=== PATIENT | female | born 1950 | race Caucasian/White ===

== ENCOUNTER 2017-09-15 13:26 | Emergency (ER) | payer MEDICARE, BC ==
[2017-09-15] MEDS ORDERED: Sodium Chloride 0.9% 10 ML Syringe FLUSH PRN (14:58)
[2017-09-15] MEDS ORDERED: Iopamidol 612 MG/ML 150 ML Bottle IV STA (15:22)
--- NOTE | 2017-09-15 18:05 | EDM.PDOC ---
ED HPI GENERAL MEDICAL PROBLEM - General Chief Complaint: Abdominal Pain Stated Complaint: ABD PAIN Time Seen by Provider: 09/15/17 14:42 Source of Information: Reports: Patient History Limitations: Reports: No Limitations - History of Present Illness INITIAL COMMENTS - FREE TEXT/NARRATIVE: This lady comes in complaining of abdominal pain since last night. She describes it as a vague pain mostly periumbilical. She's vomited a couple of times with mostly having some dry heaves. She hasn't had anything to eat or drink today she had a previous colectomy due to diverticulitis so she always has a little bit of diarrhea which is unchanged. She denies any fever she has a history of multiple sclerosis. She tried some Tums last night that didn't help. She tried some Pepto-Bismol this morning and that did not help either. abdominal Pain Score (Numeric/FACES): 5 - Related Data Allergies Allergy/AdvReac Type Severity Reaction Status Date / Time No Known Allergies Allergy Verified 09/15/17 14:31 Home Meds: Home Meds clonazePAM [Clonazepam] 0.5 mg PO DAILY 11/25/13 [History] Escitalopram [Lexapro] 20 mg PO DAILY 03/10/14 [History] Levothyroxine Sodium [Synthroid] 25 mcg PO DAILY 03/10/14 [History] Mirtazapine [Remeron] 7.5 mg PO BEDTIME 03/10/14 [History] Omeprazole 20 mg PO DAILY 03/10/14 [History] clonazePAM [Klonopin] 1 mg PO BEDTIME 03/10/14 [History] Past Medical History HEENT History: Reports: Impaired Vision Neurological History: Reports: MS Psychiatric History: Reports: Anxiety, Depression - Past Surgical History Female Surgical History: Reports: Tubal Ligation Social & Family History - Tobacco Use Smoking Status *Q: Former Smoker Years of Tobacco use: 35 Used Tobacco, but Quit: No Second Hand Smoke Exposure: No - Alcohol Use Days Per Week of Alcohol Use: 7 Number of Drinks Per Day: 2 Total Drinks Per Week: 14 - Recreational Drug Use Recreational Drug Use: No ED ROS GENERAL - Review of Systems Review Of Systems: See Below Constitutional: Reports: No Symptoms HEENT: Reports: No Symptoms Respiratory: Reports: No Symptoms Cardiovascular: Reports: No Symptoms Endocrine: Reports: No Symptoms GI/Abdominal: Reports: Abdominal Pain : Reports: No Symptoms Musculoskeletal: Reports: No Symptoms Skin: Reports: No Symptoms Neurological: Reports: No Symptoms ED EXAM, GI/ABD - Physical Exam Exam: See Below Exam Limited By: No Limitations General Appearance: Alert, Mild Distress, Obese Eyes: Bilateral: Normal Appearance Throat/Mouth: Normal Inspection Neck: Supple Respiratory/Chest: Lungs Clear Cardiovascular: Regular Rate, Rhythm GI/Abdominal Exam: Other (Abdomen feels a little bit firm and distended. Tenderness is mild but diffuse mostly in the periumbilical area. No definite masses were palpable) Extremities: Normal Inspection Neurological: Alert, Oriented, Normal Cognition Course - Vital Signs Last Recorded V/S: Last Vital Signs Temp 36.9 C 09/15/17 14:28 Pulse 67 09/15/17 17:15 Resp 20 09/15/17 17:15 BP 110/76 09/15/17 17:15 Pulse Ox 94 L 09/15/17 17:15 - Orders/Labs/Meds Orders: Active Orders 24 hr Category Date Time Status Abdomen Pelvis w Cont [CT] Stat Exams 09/15/17 14:58 Taken Sodium Chloride 0.9% [Saline Flush] Med 09/15/17 14:58 Active 10 ml FLUSH ASDIRECTED PRN Saline Lock Insert [OM.PC] Urgent Oth 09/15/17 14:58 Ordered Medication Orders Sodium Chloride (Saline Flush) 10 ml FLUSH ASDIRECTED PRN PRN Reason: Keep Vein Open Last Admin: 09/15/17 15:34 Dose: 10 ml Labs: Laboratory Tests 09/15/17 09/15/17 09/15/17 Range/Units 14:58 14:58 16:46 WBC 12.8 H (4.5-11.0) K/uL RBC 5.28 (3.30-5.50) M/uL Hgb 15.2 H D (12.0-15.0) g/dL Hct 47.2 (36.0-48.0) % MCV 89 (80-98) fL MCH 29 (27-31) pg MCHC 32 (32-36) % Plt Count 312 (150-400) K/uL Neut % (Auto) 86 H (36-66) % Lymph % (Auto) 11 L (24-44) % [place] % (Auto) 3 (2-6) % Eos % (Auto) 0 L (2-4) % Baso % (Auto) 0 (0-1) % Sodium 140 (140-148) mmol/L Potassium 4.6 (3.6-5.2) mmol/L Chloride 104 (100-108) mmol/L Carbon Dioxide 26 (21-32) mmol/L Anion Gap 10.3 (5.0-14.0) mmol/L BUN 8 (7-18) mg/dL Creatinine 1.0 D (0.6-1.0) mg/dL Est Cr Clr Drug Dosing 55.07 mL/min Estimated GFR (MDRD) 55 L (>60) Glucose 125 H (74-106) mg/dL Calcium 9.0 (8.5-10.1) mg/dL Total Bilirubin 0.4 D (0.2-1.0) mg/dL AST 25 (15-37) U/L ALT 17 (12-78) U/L Alkaline Phosphatase 145 H (46-116) U/L Total Protein 8.8 H (6.4-8.2) g/dL Albumin 3.7 (3.4-5.0) g/dL Globulin 5.1 H (2.3-3.5) g/dL Albumin/Globulin Ratio 0.7 L (1.2-2.2) Urine Color Yellow Urine Appearance Slightly cloudy Urine pH 5.0 (4.5-8.0) Ur Specific [place] 1.010 (1.008-1.030) Urine Protein Negative (NEGATIVE) mg/dL Urine Glucose (UA) Normal (NEGATIVE) mg/dL Urine Ketones Negative (NEGATIVE) mg/dL Urine Occult Blood Moderate (NEGATIVE) Urine Nitrite Positive H (NEGATIVE) Urine Bilirubin Negative (NEGATIVE) Urine Urobilinogen Normal (NORMAL) mg/dL Ur Leukocyte Esterase Moderate (NEGATIVE) Urine RBC 5-10 H (0-5) Urine WBC 10-20 H (0-5) Ur Epithelial Cells Few Amorphous Sediment Not seen Urine Bacteria Many Urine Mucus Few Meds: Medications Generic Name Dose Route Start Last Admin Trade Name Freq PRN Reason Stop Dose Admin Sodium Chloride 10 ml 09/15/17 14:58 09/15/17 15:34 Saline Flush FLUSH 10 ml ASDIRECTED PRN Administration Keep Vein Open Discontinued Medications Generic Name Dose Route Start Last Admin Trade Name Freq PRN Reason Stop Dose Admin Sodium Chloride 79 mls @ 3.9 mls/sec 09/15/17 15:22 09/15/17 15:56 Normal Saline IV 09/15/17 15:23 3.9 mls/sec ASDIRECTED STA Administration Iopamidol 129 ml 09/15/17 15:22 09/15/17 15:55 Isovue-300 (61%) IV 09/15/17 15:23 150 ml . DIRECTED STA Administration - Radiology Interpretation Free Text/Narrative:: Abdominal CT showed cholelithiasis with gallbladder wall thickening suggesting acute or chronic cholecystitis. There was no biliary dilatation. Looks like early cholecystitis. There was some thickening of the urinary bladder which could be acute or chronic no other acute findings there is no sign of bowel obstruction. - Re-Assessments/Exams Free Text/Narrative Re-Assessment/Exam: 09/15/17 18:[address] patient's symptoms have resolved almost completely. I spoke with Dr. Ellis Butler our surgeon and he feels she probably needs to have her gallbladder removed. He offered to do it tomorrow or next Saturday in 3 days which is what the patient would prefer. Therefore she'll be put on Augmentin 875 twice daily for up to 10 days and Percocet 5/325 one or 2 every 4 hours. She is to be nothing by mouth after midnight on Saturday and show up on Saturday morning at 7:30 for the surgery. The warehouse administrative assistant will be contacted tonight to make whatever other arrangements are needed. I recommend a clear liquid diet and then a fat-free diet until the time of her surgery. She's encouraged to return to the ER at any time if getting worse 09/15/17 18:15 Departure - Departure Time of Disposition: 18:02 Disposition: Home, Self-Care 01 Condition: Fair Clinical Impression: Cholecystitis - Discharge Information Referrals: El Luu MD [Primary Care Provider] - Forms: ED Department Discharge Additional Instructions: It appears that you have a mild case of cholecystitis. That's where the gallbladder gets plugged up by a gallstone and starts to get infected. Dr. Butler will plan to take out your gallbladder this coming Saturday. In the meantime you should initially start just a clear liquid diet. The nurse will discuss clear liquid diets with you. You may take Zofran 4 mg either 1 or 2 tablets sublingual every 6-8 hours as needed for nausea. If this goes okay then you can advance to a bland diet. You should be particularly careful not to eat anything with any kind of fat in it since that causes the gallbladder to contract and will result in a attack of gallbladder pain. For pain take Percocet 5/325 (#15), one or 2 tablets every 4 hours. This medication can cause sedation and impair driving. Also take Augmentin 875 mg one tablet twice daily for [address] Butler tells you to stop. You should not have anything by mouth whether food or liquid after midnight on Saturday. He should arrive at the hospital at 7:[address] Butler will plan to take out your gallbladder later in the morning. - My Orders Last 24 Hours: My Active Orders 09/15/17 14:58 Abdomen Pelvis w Cont [CT] Stat Sodium Chloride 0.9% [Saline Flush] 10 ml FLUSH ASDIRECTED PRN Saline Lock Insert [OM.PC] Urgent - Assessment/Plan Last 24 Hours: My Active Orders 09/15/17 14:58 Abdomen Pelvis w Cont [CT] Stat Sodium Chloride 0.9% [Saline Flush] 10 ml FLUSH ASDIRECTED PRN Saline Lock Insert [OM.PC] Urgent
== END 2017-09-15 18:32 | disposition home or self-care (01) ==
LOC: JP.ED 13:26
DX: K80.10 Calculus of gallbladder with chronic cholecystitis without obstruction (principal); Z79.899 Other long term (current) drug therapy; Z87.891 Personal history of nicotine dependence
CPT/HCPCS: 36415; 74177; 80053; 81001; 85025; 99284; J7030; J7050

== ENCOUNTER 2017-09-17 07:42 | Inpatient (IN) | payer MEDICARE, BC ==
[~2017-09-17 07:42] MED LIST: Bupivacaine 0.5%/EPINEPHrine 1:200,000 50 ML MDV ONE
[2017-09-17] MEDS ORDERED: Scopolamine 1.5 MG Transdermal Patch TOP SCH (07:45)
[2017-09-17] MEDS ORDERED: Acetaminophen 500 MG Tab PO ONE (07:45)
[2017-09-17] MEDS ORDERED: Scopolamine 1.5 MG Transdermal Patch TOP ONE (07:57)
[2017-09-17] MEDS: Dextrose 5%-Lactated Ringers 1,000 ML IV SCH ×2 (08:50→16:46)
[2017-09-17] MEDS ORDERED: Rocuronium 50 MG/5 ML Vial ONE (09:10)
[2017-09-17] MEDS ORDERED: Propofol 200 MG/20 ML SDV ONE (09:10)
[2017-09-17] MEDS ORDERED: Dexamethasone 4 MG/ML SDV ONE (09:10)
[2017-09-17] MEDS ORDERED: Succinylcholine 200 MG/10 ML MDV ONE (09:10)
[2017-09-17] MEDS ORDERED: Ondansetron 4 MG/2 ML SDV ONE (09:10)
[2017-09-17] MEDS ORDERED: Neostigmine Methylsulfate 1 MG/ML 5 ML Syringe ONE (09:10)
[2017-09-17] MEDS ORDERED: Glycopyrrolate 0.2 MG/ML 5 ML MDV ONE (09:10)
[2017-09-17] MEDS ORDERED: Naloxone 0.4 MG/ML SDV IVPUSH PRN (09:43)
[2017-09-17] MEDS ORDERED: HYDROmorphone/Normal Saline 15 MG/30 ML PCA IV PRN (09:43)
[2017-09-17] MEDS ORDERED: Naloxone 0.4 MG/ML SDV IV PRN (09:47)
[2017-09-17] MEDS: cefOXitin 2 GM in Premix Bag 1 BAG IV ONE ×2 (11:43→15:14)
[2017-09-17] MEDS ORDERED: Naloxone 0.4 MG/ML SDV ONE (12:37)
[2017-09-17] MEDS ORDERED: Ondansetron 4 MG/2 ML SDV IVPUSH PRN (15:11)
[2017-09-17] MEDS ORDERED: Pantoprazole 40 MG Vial IV SCH (16:30)
[2017-09-17] MEDS: cefOXitin 2 GM in Sodium Chloride 0.9% 50 ML IV SCH ×2 (18:17→23:45)
[2017-09-17] MEDS: Mirtazapine 15 MG Tab PO SCH (21:38)
[2017-09-17] MEDS: ClonazePAM 1 MG Tab PO SCH (21:38)
[2017-09-18] MEDS: Dextrose 5%-Lactated Ringers 1,000 ML IV SCH (03:47)
[2017-09-18] MEDS: cefOXitin 2 GM in Sodium Chloride 0.9% 50 ML IV SCH ×4 (06:11→23:29)
[2017-09-18] MEDS: Levothyroxine 25 MCG Tab PO SCH (07:32)
[2017-09-18] MEDS ORDERED: Levothyroxine 25 MCG Tab PO SCH (09:00)
[2017-09-18] MEDS ORDERED: Escitalopram 20 MG Tab PO SCH (09:00)
[2017-09-18] MEDS ORDERED: ClonazePAM 0.5 MG Tab PO SCH (09:00)
--- NOTE | 2017-09-18 09:19 | PN ---
DATE OF SERVICE: 09/18/2017 SUBJECTIVE: Di is postop day #1. She had a laparoscopic cholecystectomy yesterday. She has had some confusion and has been very sleepy. Collins catheter was put back in due to inability to urinate. OBJECTIVE: GENERAL: Di is a 67-year-old female, quite sleepy this morning. VITAL SIGNS: TPR is 97.4, 73, 16; blood pressure 122/70. HEENT: Negative. NECK: Supple. HEART: Regular rate and rhythm. LUNGS: Clear. ABDOMEN: Dressings dry and intact. Abdominal binder is on. KIMBERLY drain is draining 40 mL of a light pink serosanguineous drainage. EXTREMITIES: SCDs are on and there is no peripheral edema. ASSESSMENT: Diagnostic laparoscopy with cholecystectomy and drainage of pericholecystic fluid for subacute cholecystitis and pericholecystic inflammatory fluid collection on 09/17/2017, Jayant Butler MD. PLAN: 1. Discontinue Collins catheter on 09/19/2017 at 0500. 2. Discontinue KIMBERLY drain today. 3. Continue same orders. 4. We will evaluate p.r.n. or in a.m. Pam Ivory PA-C /[id number]
[2017-09-18] MEDS: Pantoprazole 40 MG Tab.CR PO SCH (09:54)
[2017-09-18] MEDS: Escitalopram 20 MG Tab PO SCH (09:54)
[2017-09-18] MEDS: ClonazePAM 0.5 MG Tab PO SCH (09:57)
[2017-09-18] MEDS: Acetaminophen/HYDROcodone 325-5 MG Tab PO PRN ×2 (14:40→20:55)
[2017-09-18] MEDS: Mirtazapine 15 MG Tab PO SCH (20:49)
[2017-09-18] MEDS: ClonazePAM 1 MG Tab PO SCH (20:55)
[2017-09-18] MEDS ORDERED: ClonazePAM 1 MG Tab PO SCH (21:00)
[2017-09-18] MEDS ORDERED: Non-Formulary Medication 1 Each (Mirtazapine [Remeron] 7.5 MG) PO SCH (21:00)
[2017-09-19] MEDS: Haloperidol Lactate 5 MG/ML SDV IVPUSH PRN ×3 (00:55→03:19)
[2017-09-19] MEDS: cefOXitin 2 GM in Sodium Chloride 0.9% 50 ML IV SCH (05:11)
[2017-09-19] MEDS: Pantoprazole 40 MG Tab.CR PO SCH (07:20)
[2017-09-19] MEDS: Levothyroxine 25 MCG Tab PO SCH (07:21)
[2017-09-19] MEDS: ClonazePAM 0.5 MG Tab PO SCH (08:50)
[2017-09-19] MEDS: Escitalopram 20 MG Tab PO SCH (08:50)
--- NOTE | 2017-09-19 08:50 | PN ---
DATE OF SERVICE: 09/19/2017 SUBJECTIVE: Di has had quite a bit in the way of confusion. She has clonazepam and was started on Haldol p.r.n. She has had 2 loose stools. KIMBERLY drain put out 175. It was ordered to be discontinued, but was not. Her vital signs have been stable. Oral intake was 1380 and urine output was 800. Pain seems to be controlled. Nursing staff did notice an increase in confusion within 1 hour after giving the [place]. REVIEW OF SYSTEMS: Remainder of review of systems negative for any pertinent positives and negatives. OBJECTIVE: GENERAL: Di Gary is a 67-year-old female. VITAL SIGNS: TPR is 99.5, 89, 18, and blood pressure 117/43. HEENT: Negative. NECK: Supple. HEART: Regular rate and rhythm. LUNGS: Clear. ABDOMEN: Dressings dry and intact. KIMBERLY drain is intact. EXTREMITIES: Without peripheral edema. ASSESSMENT: 1. Diagnostic laparoscopy with cholecystectomy and drainage of pericholecystic fluid for subacute cholecystitis and pericholecystic inflammatory fluid collection. Date of surgery, 09/17/2017; Jayant Butler MD. 2. Postoperative confusion. PLAN: 1. Remove KIMBERLY drain today as it was ordered to be removed yesterday. 2. Discontinue [place]. 3. Tylenol 650 mg q.6 hours scheduled. 4. Motrin 400 mg q.6 hours scheduled. 5. If loose stools continue, to check stool sample for C. diff. 6. Good pulmonary toilet. 7. We will evaluate p.r.n. or in a.m. Pam Ivory PA-C /[id number]
[2017-09-19] MEDS ORDERED: Acetaminophen 325 MG Tab PO SCH (10:00)
[2017-09-19] MEDS ORDERED: FLU Vacc TS 2017-18 (65yr UP)/PF 180 MCG/0.5 ML Syringe IM ONE (10:00)
[2017-09-19] MEDS ORDERED: Ibuprofen 400 MG Tab PO SCH (10:00)
--- NOTE | 2017-09-19 11:04 | DISCH ---
ADMISSION DIAGNOSES: Cholelithiasis and cholecystitis, multiple sclerosis, neurogenic bladder, anxiety, and depression. DISCHARGE DIAGNOSES: 1. Diagnostic laparoscopy with cholecystectomy and drainage of pericholecystic fluid for subacute cholecystitis and pericholecystic inflammatory fluid collection. Date of surgery, 09/17/2017; Jayant Butler MD. 2. Postoperative confusion. HISTORY: Di Gary is a 67-year-old female who presented to the emergency room with abdominal pain. After preoperative evaluation and discussion of possible risks and possible complications, she wished to proceed with surgical procedure. HOSPITAL COURSE: Di had her surgery on 09/17/2017. She had no operative complications. For the first 24 hours, she was quite sleepy and postop day #1, became very confused. She had confusion throughout the night on postop day #1. On postop day #2, Mr. Gary felt that she was at her baseline and requested that she be discharged to home. PHYSICAL EXAMINATION: GENERAL: Di Gary is a 67-year-old female. VITAL SIGNS: Height is 5 feet 8 inches. Weight is 189 pounds. TPR 99.1, 74, 18, and blood pressure 99/54. HEENT: Negative. NECK: Supple. HEART: Regular rate and rhythm. LUNGS: Clear. ABDOMEN: Sutures intact. 4x4s over KIMBERLY drain site. Abdominal binder is on. EXTREMITIES: Without peripheral edema. DISPOSITION: Discharged to home in the care of . FOLLOWUP APPOINTMENT: Pam Ivory PA-C, on 09/25/2017 at 10 a.m. DISCHARGE MEDICATIONS: Home Medications: 1. Tylenol 650 mg oral q.6 hours. 2. She is to resume her home medications; Lexapro 20 mg daily, Synthroid 25 mcg oral daily, Remeron 7.5 mg oral at bedtime, omeprazole 20 mg daily, clonazepam 0.5 mg daily, clonazepam 1 mg at bedtime, and discontinue taking the Augmentin 875 mg 1 tablet twice daily. DISCHARGE DIET: Usual diet as tolerated. Drink 8 to 10 glasses of water a day. ACTIVITY: No lifting greater than 10 pounds for 2 weeks[address] Driving, do not drive for 1 week. Shower/bathing, may shower. DISCHARGE INSTRUCTIONS: Notify provider if any fever, increased pain, nausea, or vomiting. Wound incision care, keep site clean and dry. Wear abdominal binder for 2 weeks and then as tolerated. Special instruction; use incentive spirometer 10 times every hour while awake for 1 week.
--- NOTE | 2017-09-26 11:18 | OR ---
DATE OF PROCEDURE: 09/17/2017 PREOPERATIVE DIAGNOSIS: Chronic cholecystitis and cholelithiasis. POSTOPERATIVE DIAGNOSES: 1. Subacute cholecystitis and cholelithiasis. 2. Pericholecystic inflammatory fluid collection with focal peritonitis. OPERATIVE PROCEDURES: Diagnostic laparoscopy with; 1. Cholecystectomy (54875). 2. Drainage of pericholecystic inflammatory fluid collection associated with localized peritonitis (83452). ANESTHESIA: General. WEATHER STRIP MECHANIC: Pam Ivory PA-C. INDICATIONS FOR PROCEDURE: This is a 67-year-old female presenting with ongoing upper abdominal pain. Recent workup was consistent with chronic cholecystitis. The plan is to proceed with a laparoscopic cholecystectomy. Potential risks including bleeding, infection, injury to the underlying viscera such as common bile duct, possibility of stones migrating into the common bile duct requiring additional procedures for correction were gone over along with the remote possibility of cardiopulmonary, septic, or hemorrhagic complications leading to were discussed, and the patient wishes to proceed. DETAILS OF PROCEDURE: The patient was taken to the operating room and placed in a supine position. After general endotracheal anesthesia was induced, the abdomen was prepped and draped, a transverse epigastric incision was made. The peritoneal cavity was entered under direct vision with an Optiview trocar and inflated to 15 mmHg pressure with CO2. Laparoscope was reinserted. No underlying trocar insertion site injuries were seen. Following this, a 12-mm subumbilical trocar was placed along with a single 5-mm right abdominal trocar. The camera was then brought down to the subumbilical site and the upper abdomen examined. As one retracted a quite edematous and distended gallbladder, there was noted to be quite a bit of redness and pericholecystic fluid collection present causing localized peritonitis. This fluid was evacuated. At that point, the cultures were obtained from that fluid. With the gallbladder being retracted anteriorly and laterally, dissection with Harmonic scalpel began on the gallbladder neck and continued around the gallbladder neck and cystic duct junction. Once that area was well delineated as was the adjacent cystic artery, both structures were clipped 3 times proximally and once distally, and the gallbladder neck and cystic duct junction divided as was the cystic artery. The gallbladder was then dissected off the gallbladder bed using Harmonic scalpel and delivered through the upper midline port. Due to the thickness of the gallbladder, this port needed to be enlarged somewhat at the skin and fascia level for delivery of the gallbladder. At that point, no further problems were noted. A Yovanny-Beckford drain was placed in the right lateral trocar site and positioned adjacent to the gallbladder bed. No bleeding or bile leaks were seen at this point. The trocar sites at the epigastric and umbilical sites were then in turn closed with 0 Vicryl stitch, and the skin with 4-0 Vicryl skin stitch. Dressing was applied. The patient was taken to the recovery room in a satisfactory condition. Physician acute care assistant, Pam Ivory, played an essential role in assisting in this case, helping to position the patient, retract structures as needed, as well as suturing and cutting sutures when indicated. Her presence improved patient safety and decreased the operative time. Jayant Butler MD /[id number]
== END 2017-09-19 10:25 | disposition home or self-care (01) | DRG 417 ==
LOC: JP.SDS 07:42 → JP.SDSSCHI 07:42 → JP.2SS 12:30 → EDSTATUS 14:45 → JP.MS 09-18 21:21
PROVIDERS: ADMIT Surgery; ATTEND Surgery
PROC: 0FT44ZZ Resection of Gallbladder, Percutaneous Endoscopic Approach (ICD-10-PCS; principal; 2017-09-17)
PROC: 0D9W4ZZ Drainage of Peritoneum, Percutaneous Endoscopic Approach (ICD-10-PCS; 2017-09-17)
DX: K80.00 Calculus of gallbladder with acute cholecystitis without obstruction (principal); K65.8 Other peritonitis; G35 Multiple sclerosis; R19.7 Diarrhea, unspecified; Z87.891 Personal history of nicotine dependence; H54.7 Unspecified visual loss; F32.9 Major depressive disorder, single episode, unspecified; F41.9 Anxiety disorder, unspecified; R41.0 Disorientation, unspecified; Z90.49 Acquired absence of other specified parts of digestive tract; N31.9 Neuromuscular dysfunction of bladder, unspecified
CPT/HCPCS: 36415; 51702; 82247; 84075; 85025; 87493; 88304; 94762; A9270-GY; C9113; J0330; J0694; J1100; J1630; J2310; J2405; J2704; J2710; J3010; J7042; J7050

== ENCOUNTER 2017-10-19 08:41 | Emergency (ER) | payer MEDICARE, BC ==
[2017-10-19] MEDS ORDERED: Sodium Chloride 0.9% 10 ML Syringe FLUSH PRN (09:27)
--- NOTE | 2017-10-19 09:33 | EDM.PDOC ---
ED HPI GENERAL MEDICAL PROBLEM - General Chief Complaint: Abdominal Pain Stated Complaint: PAIN ON RIGHT SIDE Time Seen by Provider: 10/19/17 09:15 Source of Information: Reports: Patient, Old Records, RN History Limitations: Reports: No Limitations - History of Present Illness INITIAL COMMENTS - FREE TEXT/NARRATIVE: 67 yo female presents with RUQ abdominal pain that has been progressive for the past 3-4 days. She had a lap cholecystectomy here by Dr. Butler 09/25/17. She has no nausea or fever. She also has a remote hx of a near total colectomy for diverticulosis/itis. Since then her stools are always loose. Her current pain is worse if she deep breaths. PHx also remarkable for MS. Here with her . Onset: Gradual Onset Date: 10/16/17 Duration: Day(s):, Getting Worse Location: Reports: Abdomen Quality: Reports: Ache, Sharp (with deep breathing) Severity: Moderate Improves with: Reports: Rest Worsens with: Reports: Movement Context: Reports: Other (Recent cholecystectomy) Associated Symptoms: Reports: No Other Symptoms. Denies: Fever/Chills, Nausea/ Vomiting Treatments [employer]RAKES: Reports: Other (see below) (none) Abdominal Pain Score (Numeric/FACES): 9 - Related Data Allergies Allergy/AdvReac Type Severity Reaction Status Date / Time No Known Allergies Allergy Verified 10/19/17 08:57 Home Meds: Home Meds clonazePAM [Clonazepam] 0.5 mg PO DAILY 11/25/13 [History] Escitalopram [Lexapro] 20 mg PO DAILY 03/10/14 [History] Levothyroxine Sodium [Synthroid] 25 mcg PO DAILY 03/10/14 [History] Mirtazapine [Remeron] 7.5 mg PO BEDTIME 03/10/14 [History] Omeprazole 20 mg PO DAILY 03/10/14 [History] clonazePAM [Klonopin] 1 mg PO BEDTIME 03/10/14 [History] Acetaminophen [Tylenol] 650 mg PO Q6H tablet 09/19/17 [Rx] Past Medical History HEENT History: Reports: Impaired Vision, Other (See Below) Other HEENT History: 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 - something wrong with retina, seeing an eye dr in [place] Gastrointestinal History: Reports: Cholelithiasis, Chronic Diarrhea, GERD Genitourinary History: Reports: Neurogenic Bladder, Urinary Incontinence, Other (See Below) Other Genitourinary History: waers depends Musculoskeletal History: Reports: Fracture Neurological History: Reports: MS Psychiatric History: Reports: Anxiety, Depression Endocrine/Metabolic History: Reports: Hypothyroidism - Infectious Disease History Infectious Disease History: Reports: Chicken Pox, Measles, Mumps - Past Surgical History HEENT Surgical History: Reports: None, Other (See Below) Other HEENT Surgeries/Procedures: 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 GI Surgical History: Reports: Cholecystectomy, Colonoscopy, Other (See Below) Other GI Surgeries/Procedures: colectomy Female Surgical History: Reports: Tubal Ligation Musculoskeletal Surgical History: Reports: Other (See Below) Other Musculoskeletal Surgeries/Procedures:: fx. right leg/hip. rods in place Social & Family History - Tobacco Use Smoking Status *Q: Current Every Day Smoker Years of Tobacco use: 50 Packs/Tins Daily: 1.5 Used Tobacco, but Quit: No Second Hand Smoke Exposure: No - Caffeine Use Caffeine Use: Reports: Soda - Alcohol Use Days Per Week of Alcohol Use: 6 Number of Drinks Per Day: 2 Total Drinks Per Week: 12 - Recreational Drug Use Recreational Drug Use: No ED ROS GENERAL - Review of Systems Review Of Systems: See Below Constitutional: Reports: No Symptoms HEENT: Reports: No Symptoms Respiratory: Reports: No Symptoms Cardiovascular: Reports: No Symptoms Endocrine: Reports: No Symptoms GI/Abdominal: Reports: Abdominal Pain, Diarrhea (chronic). Denies: Black Stool , Bloody Stool, Constipation, Distension, Flatus, Hematemesis, Hematochezia, Melena, Nausea, Vomiting : Reports: No Symptoms Musculoskeletal: Reports: No Symptoms Skin: Reports: Erythema (Under her R breast) Neurological: Reports: No Symptoms Psychiatric: Reports: No Symptoms ED EXAM, GI/ABD - Physical Exam Exam: See Below Exam Limited By: No Limitations General Appearance: Alert, WD/WN, No Apparent Distress Eyes: Bilateral: Normal Appearance Ears: Normal External Exam, Normal Canal, Hearing Grossly Normal, Normal TMs Nose: Normal Inspection Throat/Mouth: Normal Inspection, Normal Lips, Normal Oropharynx, Normal Voice, No Airway Compromise Head: Atraumatic, Normocephalic Neck: Normal Inspection, Supple, Non-Tender Respiratory/Chest: No Respiratory Distress, Lungs Clear, Normal Breath Sounds, No Accessory Muscle Use Cardiovascular: Regular Rate, Rhythm, No Edema GI/Abdominal Exam: Normal Bowel Sounds, Soft, No Distention, Tender (RUQ ), Other (laparoscopy surgery scars). No: Hernia Back Exam: Normal Inspection. No: CVA Tenderness (R), CVA Tenderness (L) Extremities: Normal Inspection, Normal Range of Motion, Non-Tender, No Pedal Edema Neurological: Alert, Oriented, CN II-XII Intact, Normal Cognition, No Motor/ Sensory Deficits Psychiatric: Normal Affect, Normal Mood Skin Exam: Warm, Dry, Intact, Normal Color, No Rash Lymphatic: No Adenopathy Course - Vital Signs Text/Narrative:: Saline lock, Percocet 1 po Case discussed with Dr. Sushant Butler @ 11:46a Last Recorded V/S: Last Vital Signs Temp 35.6 C 10/19/17 09:00 Pulse 59 L 10/19/17 11:50 Resp 18 10/19/17 11:50 BP 106/66 10/19/17 11:50 Pulse Ox 95 10/19/17 11:50 - Orders/Labs/Meds Orders: Active Orders 24 hr Category Date Time Status Abdomen Ltd [US] Stat Exams 10/19/17 09:49 Taken Sodium Chloride 0.9% [Saline Flush] Med 10/19/17 09:27 Active 10 ml FLUSH ASDIRECTED PRN Saline Lock Insert [OM.PC] Routine Oth 10/19/17 09:27 Ordered Medication Orders Sodium Chloride (Saline Flush) 10 ml FLUSH ASDIRECTED PRN PRN Reason: Keep Vein Open Last Admin: 10/19/17 09:36 Dose: 10 ml Labs: Laboratory Tests 10/19/17 10/19/17 10/19/17 Range/Units 09:38 09:38 09:38 WBC 5.7 (4.5-11.0) K/uL RBC 4.99 (3.30-5.50) M/uL Hgb 14.5 D (12.0-15.0) g/dL Hct 45.0 (36.0-48.0) % MCV 90 (80-98) fL MCH 29 (27-31) pg MCHC 32 (32-36) % Plt Count 305 (150-400) K/uL D-Dimer, Quantitative (0.0-400.0) ng/mL Sodium 139 L (140-148) mmol/L Potassium 4.4 (3.6-5.2) mmol/L Chloride 106 (100-108) mmol/L Carbon Dioxide 26 (21-32) mmol/L Anion Gap 11.4 (5.0-14.0) mmol/L BUN 8 (7-18) mg/dL Creatinine 1.0 (0.6-1.0) mg/dL Est Cr Clr Drug Dosing 55.07 mL/min Estimated GFR (MDRD) 55 L (>60) Glucose 91 (74-106) mg/dL Calcium 8.6 (8.5-10.1) mg/dL Total Bilirubin 0.4 D (0.2-1.0) mg/dL AST 21 (15-37) U/L ALT 17 (12-78) U/L Alkaline Phosphatase 135 H (46-116) U/L C-Reactive Protein 0.71 H (0.0-0.3) mg/dL Total Protein 7.3 (6.4-8.2) g/dL Albumin 3.3 L (3.4-5.0) g/dL Globulin 4.0 H (2.3-3.5) g/dL Albumin/Globulin Ratio 0.8 L (1.2-2.2) 10/19/17 Range/Units 10:00 WBC (4.5-11.0) K/uL RBC (3.30-5.50) M/uL Hgb (12.0-15.0) g/dL Hct (36.0-48.0) % MCV (80-98) fL MCH (27-31) pg MCHC (32-36) % Plt Count (150-400) K/uL D-Dimer, Quantitative 521 H (0.0-400.0) ng/mL Sodium (140-148) mmol/L Potassium (3.6-5.2) mmol/L Chloride (100-108) mmol/L Carbon Dioxide (21-32) mmol/L Anion Gap (5.0-14.0) mmol/L BUN (7-18) mg/dL Creatinine (0.6-1.0) mg/dL Est Cr Clr Drug Dosing mL/min Estimated GFR (MDRD) (>60) Glucose (74-106) mg/dL Calcium (8.5-10.1) mg/dL Total Bilirubin (0.2-1.0) mg/dL AST (15-37) U/L ALT (12-78) U/L Alkaline Phosphatase (46-116) U/L C-Reactive Protein (0.0-0.3) mg/dL Total Protein (6.4-8.2) g/dL Albumin (3.4-5.0) g/dL Globulin (2.3-3.5) g/dL Albumin/Globulin Ratio (1.2-2.2) Meds: Medications Generic Name Dose Route Start Last Admin Trade Name Freq PRN Reason Stop Dose Admin Sodium Chloride 10 ml 10/19/17 09:27 10/19/17 09:36 Saline Flush FLUSH 10 ml ASDIRECTED PRN Administration Keep Vein Open Discontinued Medications Generic Name Dose Route Start Last Admin Trade Name Freq PRN Reason Stop Dose Admin Oxycodone/Acetaminophen 1 tab 10/19/17 11:46 10/19/17 11:54 Percocet 325-5 Mg PO 10/19/17 11:47 1 tab ONETIME ONE Administration - Radiology Interpretation Free Text/Narrative:: Limited Abdominal US-negative for pathology Departure - Departure Time of Disposition: 12:16 Disposition: Home, Self-Care 01 Condition: Good Clinical Impression: RUQ abdominal pain - Discharge Information Referrals: El Luu MD [Primary Care Provider] - Forms: ED Department Discharge Additional Instructions: Use Percocet 1-2 every 4-6 hrs as needed for pain relief. May add ibuprofen 400 mg every 6 hrs for added relief. Return for a fever or vomiting. Call and schedule and appt to see Dr. Butler in his office. - My Orders Last 24 Hours: My Active Orders 10/19/17 09:27 Sodium Chloride 0.9% [Saline Flush] 10 ml FLUSH ASDIRECTED PRN Saline Lock Insert [OM.PC] Routine 10/19/17 09:49 Abdomen Ltd [US] Stat - Assessment/Plan Last 24 Hours: My Active Orders 10/19/17 09:27 Sodium Chloride 0.9% [Saline Flush] 10 ml FLUSH ASDIRECTED PRN Saline Lock Insert [OM.PC] Routine 10/19/17 09:49 Abdomen Ltd [US] Stat
[2017-10-19] MEDS ORDERED: Acetaminophen/oxyCODONE 325-5 MG Tab PO ONE (11:46)
== END 2017-10-19 12:24 | disposition home or self-care (01) ==
LOC: JP.ED 08:41
DX: R10.11 Right upper quadrant pain (principal); E03.9 Hypothyroidism, unspecified; G35 Multiple sclerosis; K21.9 Gastro-esophageal reflux disease without esophagitis; F32.9 Major depressive disorder, single episode, unspecified; F41.9 Anxiety disorder, unspecified; F17.210 Nicotine dependence, cigarettes, uncomplicated; Z79.899 Other long term (current) drug therapy; Z90.49 Acquired absence of other specified parts of digestive tract
CPT/HCPCS: 36415; 76705; 80053; 85027; 85379; 86140; 99284; A9270; J7050; 99283

== ENCOUNTER 2021-04-22 08:27 | Emergency (ER) | payer MEDICARE ==
--- NOTE | 2021-04-22 10:24 | EDM.PDOC ---
ED HPI GENERAL MEDICAL PROBLEM - General Chief Complaint: Flank Pain Stated Complaint: UPPER R SIDE IN PAIN FOR 7-10 DAYS Time Seen by Provider: 04/22/21 10:24 Source of Information: Reports: Patient, Family History Limitations: Reports: Other (Poor historian, difficult to follow conversation and reported concerns ) - History of Present Illness INITIAL COMMENTS - FREE TEXT/NARRATIVE: Di is a 71 year old female whom presents her , whom assists with history, to ER for evaluation of right flank, lateral abdominal pain which started a few days after a fall over 1 week ago. Di normally ambulates independently with a walker but increase in pain has limited her mobility. Di denies urinary infection concern or constipation Di has a history of near complete bowel resection resulting in chronic loose stools, which are unchanged. Di has a history of anxiety, medicated her with additional Clonopin at time of ER arrival. No pain medications take this am but normal takes 2 aleve every am for pain concerns. Di does not want any needles during evaluation today despite pain concerns. Offered Lidoderm patch and oral pain medication at this time. Right Lower Back Pain Score (Numeric/FACES): 9 - Related Data Allergies Allergy/AdvReac Type Severity Reaction Status Date / Time No Known Allergies Allergy Verified 10/19/17 08:57 Home Meds: Home Meds clonazePAM [Clonazepam] 0.5 mg PO DAILY 11/25/13 [History] Escitalopram [Lexapro] 20 mg PO DAILY 03/10/14 [History] Levothyroxine Sodium [Synthroid] 25 mcg PO DAILY 03/10/14 [History] Mirtazapine [Remeron] 7.5 mg PO BEDTIME 03/10/14 [History] Omeprazole 20 mg PO DAILY 03/10/14 [History] clonazePAM [Klonopin] 1 mg PO BEDTIME 03/10/14 [History] Acetaminophen [Tylenol] 650 mg PO Q6H tablet 09/19/17 [Rx] Acetaminophen/oxyCODONE [Percocet 325-5 MG] 1 each PO Q6H PRN 5 Days #10 tab 04/22/21 [Rx] Past Medical History HEENT History: Reports: Impaired Vision, Other (See Below) Other HEENT History: 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 - something wrong with retina, seeing an eye dr in [place] Gastrointestinal History: Reports: Cholelithiasis, Chronic Diarrhea, GERD Genitourinary History: Reports: Neurogenic Bladder, Urinary Incontinence, Other (See Below) Other Genitourinary History: waers depends Musculoskeletal History: Reports: Fracture Neurological History: Reports: MS Psychiatric History: Reports: Anxiety, Depression Endocrine/Metabolic History: Reports: Hypothyroidism - Infectious Disease History Infectious Disease History: Reports: Chicken Pox, Measles, Mumps - Past Surgical History HEENT Surgical History: Reports: None, Other (See Below) Other HEENT Surgeries/Procedures: 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 GI Surgical History: Reports: Cholecystectomy, Colonoscopy, Other (See Below) Other GI Surgeries/Procedures: colectomy Female Surgical History: Reports: Tubal Ligation Musculoskeletal Surgical History: Reports: Other (See Below) Other Musculoskeletal Surgeries/Procedures:: fx. right leg/hip. rods in place Social & Family History - Caffeine Use Caffeine Use: Reports: Soda ED ROS GENERAL - Review of Systems Review Of Systems: Comprehensive ROS is negative, except as noted in HPI. ED EXAM, GI/ABD - Physical Exam Exam: See Below Exam Limited By: Physical Impairment (unable to roll or sit up limiting back examination due to body habitus and pain) General Appearance: Alert, WD/WN, Anxious, Moderate Distress Eyes: Bilateral: Normal Appearance Ears: Hearing Grossly Normal Nose: Normal Inspection Throat/Mouth: Normal Inspection, Normal Voice, No Airway Compromise Head: Atraumatic Neck: Normal Inspection, Supple, Full Range of Motion Respiratory/Chest: No Respiratory Distress, Normal Breath Sounds, Other (penduloous breast tissue with seborrheic keratosis lesions noted (no rash or infection). ) Cardiovascular: Normal Peripheral Pulses, Regular Rate, Rhythm GI/Abdominal Exam: Normal Bowel Sounds, Soft, Other (pendulous abdomen limiting examination ) (Female) Exam: Deferred Rectal (Female) Exam: Deferred Back Exam: Other (limited exam due to immobility issues. Pain right flank/paraverterbral muscles. Visualized skin no overlying rash noted. ) Extremities: Normal Inspection, Normal Range of Motion, Pedal Edema Neurological: Alert, Oriented, CN II-XII Intact, Normal Cognition, Abnormal Gait Psychiatric: Anxious Skin Exam: Warm, Dry, Intact, Normal Color, No Rash Course - Vital Signs Last Recorded V/S: Last Vital Signs Temp 35.9 C L 04/22/21 10:09 Pulse 78 07/31/21 10:09 Resp 18 04/22/21 10:09 BP 141/74 H 04/22/21 10:09 Pulse Ox - Orders/Labs/Meds Meds: Medications Discontinued Medications Generic Name Dose Route Start Last Admin Trade Name Angel Luisq PRN Reason Stop Dose Admin Lidocaine 700 mg 04/22/21 10:31 04/22/21 10:43 Lidocaine 5% 700 Mg Patch TOP 04/22/21 10:32 700 mg ONETIME ONE Administration Oxycodone/Acetaminophen 1 tab 04/22/21 10:31 04/22/21 10:42 Acetaminophen/Oxycodone 325-5 Mg Tab PO 1 tab ONETIME PRN Administration Pain - Radiology Interpretation Free Text/Narrative:: CT Thoracic Spine: T6 and T8 compression fractures (likely old) per radiology report. CT Lumbar Spine: Compression fracture L3 moderate to marked. Fracture of L3 body is fused with L2 by osteophtye formation Moderate to advanced disc degeneration L4-5. - Re-Assessments/Exams Free Text/Narrative Re-Assessment/Exam: Discuss limitations of oral medications vs IV or IM medications for pain control. Discussed imaging due to fall. size and immobility plain film will be difficult and not very helpful to evaluation possible compression spine fracture due to fall and delayed onset of pain. 04/22/21 10:55 Reassessment: Pain much improved at rest with increased pain with movement. REpeat examination with lumbar midline pain and right lateral posterior chest pain. Possible right lateral rib fracture. CT Lumbar spine images reviewed by myself with compression vs arthritic changes mid thoracic spine and L2-L3. Radiology report pending at this time. 04/22/21 12:00 Radiology report available and reviewed with patient and at this time with pain treatment recommendations and follow-up in clinic this next week. 04/22/21 12:35 Departure - Departure Time of Disposition: 12:43 Disposition: Home, Self-Care 01 Clinical Impression: Compression fx, thoracic spine, Compression fx, lumbar spine, Right-sided chest wall pain - Discharge Information Prescriptions: Acetaminophen/oxyCODONE [Percocet 325-5 MG] 1 each PO Q6H PRN 5 Days #10 tab PRN Reason: pain Referrals: El Luu MD [Primary Care Provider] - Forms: ED Department Discharge Additional Instructions: 1. Leave Lidoderm patch in place for the next 12-24 hours. Purchase Lidoderm patch 4% Salonpaus at local pharmacy to replace tomorrow and daily this week. 2. Tylenol 650mg every 6 hours for mild to moderate pain. Add additional Tylenol 650 is pain is moderate or ONE Percocet if pain is more severe. 3. Max Tylenol dosing recommended is 3000mg per day. 4. May continue Aleve 1-2 tablets every 8-12 hours for pain if needed fro yogesh tional pain relief before using Percocet. 5. Contact primary care provider regarding right side chest wall pain likely non displaced rib fracture or contusion AND Thoracic/Lumbar spine compression fr actures and arthritis change for continue pain recommendation. 6. Move around as much as comfortable, as motion is lotion to joints and back with arthritis concerns. 7. Return to ER if concern changes new, worsening symptoms or concerns. Sepsis Event Note (ED) - Evaluation Sepsis Screening Result: No Definite Risk - Focused Exam Vital Signs: Vital Signs Temp Pulse Resp BP 04/22/21 10:09 35.9 C L 78 18 141/74 H
[2021-04-22] MEDS ORDERED: Lidocaine 5% 700 MG Patch TOP ONE (10:31)
[2021-04-22] MEDS ORDERED: Acetaminophen/oxyCODONE 325-5 MG Tab PO PRN (10:31)
--- NOTE | 2021-04-22 12:18 | CRLCT ---
For Patients: As a result of the Cures Act, medical imaging exams and procedure reports are released immediately into your electronic medical record. You may view this report before your referring provider. If you have questions, please contact your health care provider. INDICATION: Fell 2 weeks ago. History of MS. TECHNIQUE: Volumetric helical scanning of the thoracic spine was performed without contrast material. Sagittal and coronal reconstructions were also obtained. COMPARISON: Today`s lumbar spine CT. FINDINGS: No acute fracture or paraspinous hematoma is evident. Chronic-appearing mild compression fractures of T6 and T8 are noted. There are mild degenerative changes. IMPRESSION: 1. No acute traumatic abnormality. 2. Chronic-appearing mild compression fractures of T6 in T8. 3. Mild degenerative changes. Please note that all CT scans at this facility use dose modulation, iterative reconstruction, and/or weight-based dosing when appropriate to reduce radiation dose to as low as reasonably achievable. Dictated by Christiano Lopez MD @ 04/22/2021 12:16:[address] Christiano Lopez @ Apr 22 2021 12:16PM
--- NOTE | 2021-04-22 12:28 | CRLCT ---
For Patients: As a result of the Century Cures Act, medical imaging exams and procedure reports are released immediately into your electronic medical record. You may view this report before your referring provider. If you have questions, please contact your health care provider. INDICATION: Fell 2 weeks ago. History of MS. TECHNIQUE: Volumetric helical scanning of the lumbar spine was performed without contrast material. Sagittal and coronal reconstructions were also obtained. COMPARISON: Today`s thoracic spine CT. FINDINGS: No acute fracture or paraspinous hematoma is identified. A chronic moderate to marked L3 compression fracture is demonstrated. The fractured L3 body is fused with L2 by osteophyte formation. There is moderate to advanced L4-5 disc degeneration. No spondylolisthesis is evident. IMPRESSION: 1. No acute traumatic abnormality evident. 2. Chronic moderate to marked L3 compression fracture and degenerative changes, as above. Please note that all CT scans at this facility use dose modulation, iterative reconstruction, and/or weight-based dosing when appropriate to reduce radiation dose to as low as reasonably achievable. Dictated by Christiano Loepz MD @ 04/22/2021 12:26:[address] Christiano Lopez @ Apr 22 2021 12:26PM
== END 2021-04-22 13:02 | disposition home or self-care (01) ==
LOC: JP.ED 08:27
DX: S22.050A Wedge compression fracture of T5-T6 vertebra, initial encounter for closed fracture (principal); S32.030A Wedge compression fracture of third lumbar vertebra, initial encounter for closed fracture; S32.020A Wedge compression fracture of second lumbar vertebra, initial encounter for closed fracture; S22.060A Wedge compression fracture of T7-T8 vertebra, initial encounter for closed fracture; K21.9 Gastro-esophageal reflux disease without esophagitis; E03.9 Hypothyroidism, unspecified; Z79.899 Other long term (current) drug therapy; W18.09XA Striking against other object with subsequent fall, initial encounter
CPT/HCPCS: 72128; 72131; 99284; A9270

== ENCOUNTER 2022-05-21 17:22 | Emergency (ER) | payer MEDICARE ==
[2022-05-21] MEDS: Lidocaine 1% 5 ML VIAL INJECT ONE (19:03)
[2022-05-21] MEDS: Bacitracin Oint 1 GM U/D Packet TOP ONE (19:04)
[2022-05-21] MEDS: Diphtheria,Pertussis(Acell),Tetanus Vaccine 0.5 ML Syringe IM ONE (19:04)
== END 2022-05-21 19:33 | disposition home or self-care (01) ==
LOC: JP.ED 17:22
DX: S71.131A Puncture wound without foreign body, right thigh, initial encounter (principal); K21.9 Gastro-esophageal reflux disease without esophagitis; E03.9 Hypothyroidism, unspecified; F17.210 Nicotine dependence, cigarettes, uncomplicated; Z79.899 Other long term (current) drug therapy; Z23 Encounter for immunization; W18.30XA Fall on same level, unspecified, initial encounter
CPT/HCPCS: 12001; 90471; 90715; 99283-25

== ENCOUNTER 2025-04-17 19:23 | Emergency (ER) | payer MEDICARE ==
[2025-04-17] MEDS: Ketamine 500 MG/5 ML MDV IV ONE (19:50)
[2025-04-17 21:48] LABS: BASOPHILS ABSOLUTE AUTO 0.09 K/uL (0.00-0.10); BASOPHILS PERCENT AUTO 0.6 % (0.1-1.3); EOSINOPHILS ABSOLUTE AUTO 0.07 K/uL (0.00-0.40); EOSINOPHILS PERCENT AUTO 0.4 % (0.0-5.4); IMMATURE GRAN ABSOLUTE AUTO 0.07 K/uL (0.00-0.23); IMMATURE GRAN PERCENT AUTO 0.4 % (0.0-0.7); LYMPHOCYTES ABSOLUTE AUTO 1.60 K/uL (0.8-3.3); LYMPHOCYTES PERCENT AUTO 10.1 % (11.4-47.7); MONOCYTES ABSOLUTE AUTO 0.90 K/uL (0.20-0.90); MONOCYTES PERCENT AUTO 5.7 % (3.3-12.6); NEUTROPHILS ABSOLUTE AUTO 13.12 K/uL (1.0-7.6); NEUTROPHILS PERCENT AUTO 82.8 % (40.0-78.1); PLATELET COUNT,PLT 376 K/uL (130-375); RED BLOOD CELL COUNT 4.79 M/uL (3.77-5.24); WHITE BLOOD CELL COUNT,WBC 15.9 K/uL (3.2-11.0)
[2025-04-17 22:04] LABS: BLOOD UREA NITROGEN,BUN 11.0 mg/dL (7-18); CARBON DIOXIDE,CO2 28.0 mmol/L (21-32); CHLORIDE,CL 104.0 mmol/L (100-108); CREATININE 1.0 mg/dL (0.6-1.0); EST CRCL DRUG DOSING (CG) 49.03 mL/min; ESTIMATED GFR 59.0 mL/min (>60); GLUCOSE RANDOM 128.0 mg/dL (74-106); POTASSIUM,K 4.3 mmol/L (3.6-5.2); SODIUM,NA 141.0 mmol/L (140-148)
== END 2025-04-17 23:45 | disposition home or self-care (01) ==
LOC: JP.ED 19:23
DX: S42.201A Unspecified fracture of upper end of right humerus, initial encounter for closed fracture (principal); E03.9 Hypothyroidism, unspecified; F17.210 Nicotine dependence, cigarettes, uncomplicated; Z79.899 Other long term (current) drug therapy; Z79.890 Hormone replacement therapy; W01.0XXA Fall on same level from slipping, tripping and stumbling without subsequent striking against object, initial encounter; Y93.89 Activity, other specified
CPT/HCPCS: 36415; 71045; 71045-26; 73030-26-RT; 73030-RT; 80048; 83605; 85025; 96374; 99283; 99284-25

== ENCOUNTER 2025-04-23 16:34 | Inpatient (IN) | payer MEDICARE ==
[2025-04-23] MEDS: LORazepam 2 MG/ML SDV IVPUSH ONE (17:15)
[2025-04-23 18:25] LABS: APPEARANCE,URINE SLIGHTLY CLOUDY (CLEAR); GLUCOSE,URINE NEGATIVE (NEGATIVE); OCCULT BLOOD,URINE MODERATE (NEGATIVE)
[2025-04-23 18:41] LABS: SQUAMOUS EPITHELIAL CELLS,UR RARE /HPF; UROTHELIAL CELLS,URINE NOT SEEN /HPF
[2025-04-23 19:59] LABS: BASOPHILS ABSOLUTE AUTO 0.08 K/uL (0.00-0.10); BASOPHILS PERCENT AUTO 0.8 % (0.1-1.3); EOSINOPHILS ABSOLUTE AUTO 0.14 K/uL (0.00-0.40); EOSINOPHILS PERCENT AUTO 1.4 % (0.0-5.4); IMMATURE GRAN ABSOLUTE AUTO 0.03 K/uL (0.00-0.23); IMMATURE GRAN PERCENT AUTO 0.3 % (0.0-0.7); LYMPHOCYTES ABSOLUTE AUTO 1.35 K/uL (0.8-3.3); LYMPHOCYTES PERCENT AUTO 13.4 % (11.4-47.7); MONOCYTES ABSOLUTE AUTO 0.83 K/uL (0.20-0.90); MONOCYTES PERCENT AUTO 8.2 % (3.3-12.6); NEUTROPHILS ABSOLUTE AUTO 7.66 K/uL (1.0-7.6); NEUTROPHILS PERCENT AUTO 75.9 % (40.0-78.1); PLATELET COUNT,PLT 385 K/uL (130-375); RED BLOOD CELL COUNT 4.10 M/uL (3.77-5.24); WHITE BLOOD CELL COUNT,WBC 10.1 K/uL (3.2-11.0)
[2025-04-23 20:19] LABS: BLOOD UREA NITROGEN,BUN 15 mg/dL (7-18); CARBON DIOXIDE,CO2 31 mmol/L (21-32); CHLORIDE,CL 101 mmol/L (100-108); CREATININE 0.8 mg/dL (0.6-1.0); ESTIMATED GFR 77 mL/min (>60); GLUCOSE RANDOM 113 mg/dL (74-106); POTASSIUM,K 3.9 mmol/L (3.6-5.2); SODIUM,NA 138 mmol/L (140-148)
[2025-04-23] MEDS ORDERED: Magnesium Hydroxide 400 MG/5 ML Susp 30 ML Cup PO PRN (21:49)
[2025-04-23] MEDS ORDERED: Ondansetron 4 MG/2 ML SDV IV PRN (21:49)
[2025-04-23] MEDS: Lactobacillus Rhamnosus GG (Probiotic) Cap PO SCH (22:18)
[2025-04-23] MEDS: Ondansetron 4 MG Tab.DIS PO PRN (22:41)
[2025-04-24 06:04] LABS: PLATELET COUNT,PLT 364.0 K/uL (130-375); RED BLOOD CELL COUNT 3.89 M/uL (3.77-5.24); WHITE BLOOD CELL COUNT,WBC 7.4 K/uL (3.2-11.0)
[2025-04-24 06:15] LABS: BLOOD UREA NITROGEN,BUN 13.0 mg/dL (7-18); CARBON DIOXIDE,CO2 32.0 mmol/L (21-32); CHLORIDE,CL 103.0 mmol/L (100-108); CREATININE 0.7 mg/dL (0.6-1.0); EST CRCL DRUG DOSING (CG) 70.05 mL/min; ESTIMATED GFR 90.0 mL/min (>60); GLUCOSE RANDOM 99.0 mg/dL (74-106); POTASSIUM,K 3.6 mmol/L (3.6-5.2); SODIUM,NA 140.0 mmol/L (140-148)
[2025-04-24] MEDS ORDERED: Sodium Chloride 0.9% 10 ML Syringe IV PRN (07:25)
[2025-04-24] MEDS ORDERED: Non-Formulary Medication 1 Each (Omeprazole [Omeprazole] 20 MG Cap.Sr) PO SCH (13:59)
[2025-04-24] MEDS ORDERED: Non-Formulary Medication 1 Each (Escitalopram [Lexapro] 20 MG Tablet) PO SCH (14:00)
[2025-04-24] MEDS ORDERED: MIRTAZAPINE 15 MG PO SCH (21:00)
[2025-04-26] MEDS: Sennosides/Docusate Sodium 50-8.6 MG Tab PO PRN (08:11)
== END 2025-04-30 10:55 | DRG 699 ==
LOC: JP.ED 16:34 → JP.MS 19:45 → OBSVTOIN 04-24 08:41 → JP.MS 04-26 16:35
PROVIDERS: ADMIT Registered Nurse; ATTEND Internal Medicine
PROC: 0T2BX0Z Change Drainage Device in Bladder, External Approach (ICD-10-PCS; principal; 2025-04-24)
DX: S42.201A Unspecified fracture of upper end of right humerus, initial encounter for closed fracture (principal); T83.510A Infection and inflammatory reaction due to cystostomy catheter, initial encounter; N30.00 Acute cystitis without hematuria; F17.200 Nicotine dependence, unspecified, uncomplicated; Z79.890 Hormone replacement therapy; S42.201D Unspecified fracture of upper end of right humerus, subsequent encounter for fracture with routine healing; Z66 Do not resuscitate; X58.XXXA Exposure to other specified factors, initial encounter; F41.9 Anxiety disorder, unspecified; F32.A Depression, unspecified; E03.9 Hypothyroidism, unspecified; F17.210 Nicotine dependence, cigarettes, uncomplicated; G35 Multiple sclerosis; N31.9 Neuromuscular dysfunction of bladder, unspecified; R33.9 Retention of urine, unspecified; W19.XXXD Unspecified fall, subsequent encounter; Z79.899 Other long term (current) drug therapy; Z98.890 Other specified postprocedural states; Z90.49 Acquired absence of other specified parts of digestive tract; Z98.1 Arthrodesis status; Z98.51 Tubal ligation status; Y84.6 Urinary catheterization as the cause of abnormal reaction of the patient, or of later complication, without mention of misadventure at the time of the procedure
CPT/HCPCS: 36415 ×2; 80048 ×2; 81001; 84443; 85025; 85027; 96365; 96375; 99222; 99284; 99285; A9270 ×3; G0378 ×3; J0696; J2060; Q0162; 96374; 97110-GO; 97110-GP; 97161-GP; 97165-GO; 97530-GP; 99231; 99232; 99239